=== PATIENT | female | born 1950 | race African-American/Black ===

== ENCOUNTER 2016-03-15 13:23 | Day surgery (SDC) | payer MEDICARE, MEDICAID ==
[~2016-03-15] VITALS: Ht 180.3 cm; Wt 98.5 kg
[2016-03-15] VITALS (8 sets, daily range): BP systolic 104–123; BP diastolic 55–69; PULSE 48–63; TEMP 98–98.4
[~2016-03-15 13:23] MED LIST: AGGRENOX ER 251 CER PO; AMBIEN 10MG10 MG PO; HCTZ 25MG TAB25 MG PO; K-TAB20; MOBIC15 MG PO; PERCR 7.5 PO; PRAVACHOL 20MG20 MG PO
[2016-03-15] MEDS ORDERED: PRINIVIL10 MG PO (14:05)
[2016-03-15] MEDS ORDERED: PLAVIX 75MG TAB75 MG PO (14:06)
[2016-03-15] MEDS ORDERED: XANAX 1MG1 MG PO (14:07)
== END 2016-03-15 20:15 | disposition home or self-care (01) ==
LOC: SDCO 13:23 → SURG 15:53 → SDCO 20:15
DX: K80.50 Calculus of bile duct without cholangitis or cholecystitis without obstruction (principal); K31.9 Disease of stomach and duodenum, unspecified
CPT/HCPCS: OP; C1769; J2250; J2704; J3010; J7120; Q9967

== ENCOUNTER 2017-05-11 06:04 | Day surgery (SDC) | payer MEDICARE, MEDICAID ==
[~2017-05-11] VITALS: Ht 180.3 cm; Wt 100.9 kg
[~2017-05-11 06:04] MED LIST changes: +PLAVIX 75MG TAB75 MG PO; +PRINIVIL10 MG PO; +XANAX 1MG1 MG PO
[2017-05-11] MEDS ORDERED: ROXICODONE 55 MG/TAB PO (06:20)
[2017-05-11 06:51] VITALS: BP 123/73; PULSE 72; TEMP 98.2
[2017-05-11 07:35] VITALS: BP 103/78; PULSE 66; TEMP 97.6
[2017-05-11 07:45] VITALS: BP 97/79; PULSE 69
[2017-05-11 08:00] VITALS: BP 128/61; PULSE 62
== END 2017-05-11 08:30 | disposition home or self-care (01) ==
LOC: SDCO 06:04
DX: Z12.11 Encounter for screening for malignant neoplasm of colon (principal); D12.5 Benign neoplasm of sigmoid colon; K57.30 Diverticulosis of large intestine without perforation or abscess without bleeding; I10 Essential (primary) hypertension; E78.00 Pure hypercholesterolemia, unspecified; D64.9 Anemia, unspecified; R19.7 Diarrhea, unspecified; G47.33 Obstructive sleep apnea (adult) (pediatric); F41.9 Anxiety disorder, unspecified; Z79.01 Long term (current) use of anticoagulants; Z88.0 Allergy status to penicillin; Z90.49 Acquired absence of other specified parts of digestive tract; Z86.73 Personal history of transient ischemic attack (TIA), and cerebral infarction without residual deficits; Z87.891 Personal history of nicotine dependence
CPT/HCPCS: J2704; J7030

== ENCOUNTER → 2018-01-02 | Outpatient (CLI) | payer MEDICARE, MEDICAID ==
[~2018-01-02] MED LIST changes: +ROXICODONE 55 MG/TAB PO
[2018-01-02 12:52] LABS: ALBUMIN 4.1 gm/dL (3.5-5.0); BILIRUBIN,TOTAL 0.5 mg/dL (0.0-1.0); CALCIUM 9.7 mg/dL (8.4-10.2); CHOLESTEROL RISK RATIO 3.7; CREATININE, serum 0.79 mg/dL (0.52-1.25); POTASSIUM 4.2 mmol/L (3.4-5.0)
== END ==
LOC: COL.LAB 11:19
PROVIDERS: Family Medicine
DX: I10 Essential (primary) hypertension (principal); R29.890 Loss of height; Z78.0 Asymptomatic menopausal state

== ENCOUNTER → 2018-02-01 | Outpatient (CLI) | payer MEDICARE, MEDICAID | LOC: COL.RAD 09:07 | DX: J18.9 Pneumonia, unspecified organism (principal) ==

== ENCOUNTER → 2019-02-10 | Outpatient (CLI) | payer MEDICARE, MEDICAID | LOC: ZCOL.LAB 18:06 | DX: R39.9 Unspecified symptoms and signs involving the genitourinary system (principal) ==

== ENCOUNTER → 2019-04-15 | Outpatient (CLI) | payer MEDICARE, MEDICAID | LOC: MC.RAD 09:59 | DX: Z12.31 Encounter for screening mammogram for malignant neoplasm of breast (principal) ==

== ENCOUNTER → 2020-05-06 | Outpatient (CLI) | payer MEDICARE, MEDICAID ==
[~2020-05-06] MED LIST changes: +NATURE'S BLEND600 M2 PO; +OMEGA-3 1000 MG1 CAP PO
== END ==
LOC: MC.RAD 13:26
DX: Z12.31 Encounter for screening mammogram for malignant neoplasm of breast (principal); N64.89 Other specified disorders of breast

== ENCOUNTER → 2020-05-13 | Outpatient (CLI) | payer MEDICARE, MEDICAID | LOC: MC.RAD 12:31 | DX: N63.13 Unspecified lump in the right breast, lower outer quadrant (principal); N64.89 Other specified disorders of breast ==

== ENCOUNTER → 2020-05-19 | Outpatient (CLI) | payer MEDICARE, MEDICAID | LOC: MC.RAD 07:19 | DX: C50.911 Malignant neoplasm of unspecified site of right female breast (principal); N64.89 Other specified disorders of breast; R92.0 Mammographic microcalcification found on diagnostic imaging of breast; Z98.82 Breast implant status ==

== ENCOUNTER 2020-06-15 07:15 | Inpatient (IN) | payer MEDICARE, MEDICAID, OTHER ==
[2020-06-15] VITALS (9 sets, daily range): BP systolic 115–150; BP diastolic 54–81; PULSE 62–96; TEMP 97.8–98.3
[~2020-06-15] VITALS: Ht 180.3 cm; Wt 105.2 kg
[~2020-06-15 07:15] MED LIST changes: -NATURE'S BLEND600 M2 PO; -OMEGA-3 1000 MG1 CAP PO
[2020-06-15] MEDS ORDERED: NATURE'S BLEND600 M2 PO (08:26)
[2020-06-15] MEDS ORDERED: OMEGA-3 1000 MG1 CAP PO (08:26)
[2020-06-16] VITALS (7 sets, daily range): BP systolic 98–133; BP diastolic 54–69; PULSE 63–89; TEMP 97.6–99
[2020-06-16 06:54] LABS: HEMATOCRIT 30.4 % (37.0-47.0); HEMOGLOBIN 9.8 g/dl (12.5-16.0)
[2020-06-17 04:00] VITALS: BP 119/65; PULSE 84; TEMP 98.9
[2020-06-17 08:00] VITALS: BP 110/67; PULSE 88; TEMP 99.1
[2020-06-17 11:37] VITALS: BP 126/72; PULSE 85; TEMP 97.9
== END 2020-06-17 15:30 | disposition home health service (06) | DRG 580 ==
LOC: SDCO 07:15 → INPTSU 14:31 → SURG 17:15
PROVIDERS: ADMIT Surgery
PROC: 0HTT0ZZ Resection of Right Breast, Open Approach (ICD-10-PCS; 2020-06-15)
PROC: 07B50ZX Excision of Right Axillary Lymphatic, Open Approach, Diagnostic (ICD-10-PCS; principal; 2020-06-15 12:00)
PROC: 0HCT0ZZ Extirpation of Matter from Right Breast, Open Approach (ICD-10-PCS; 2020-06-15 12:00)
DX: C50.511 Malignant neoplasm of lower-outer quadrant of right female breast (principal); L76.22 Postprocedural hemorrhage of skin and subcutaneous tissue following other procedure; I10 Essential (primary) hypertension; E78.5 Hyperlipidemia, unspecified; Z20.822 Contact with and (suspected) exposure to COVID-19; G47.33 Obstructive sleep apnea (adult) (pediatric); F41.9 Anxiety disorder, unspecified; Y83.8 Other surgical procedures as the cause of abnormal reaction of the patient, or of later complication, without mention of misadventure at the time of the procedure; Z17.0 Estrogen receptor positive status [ER+]; Z86.73 Personal history of transient ischemic attack (TIA), and cerebral infarction without residual deficits
CPT/HCPCS: A9541; J0690; J1100; J1885; J2250; J2405; J2704; J3010; J7120

== ENCOUNTER → 2021-06-16 | Outpatient (CLI) | payer MEDICARE, MEDICAID ==
[~2021-06-16] MED LIST changes: +NATURE'S BLEND600 M2 PO; +OMEGA-3 1000 MG1 CAP PO
== END ==
LOC: MC.RAD 05-10 09:15
DX: Z12.31 Encounter for screening mammogram for malignant neoplasm of breast (principal); Z90.11 Acquired absence of right breast and nipple; Z85.3 Personal history of malignant neoplasm of breast

== ENCOUNTER → 2023-08-24 | Outpatient (CLI) | payer MEDICARE, MEDICAID ==
[~2023-08-24] MED LIST changes: +NORCO 325 MG-51 TAB PO
== END ==
LOC: MC.RAD 10:16
DX: Z12.31 Encounter for screening mammogram for malignant neoplasm of breast (principal)